=== PATIENT | male | born 1945 | race Hispanic/Latino ===

== ENCOUNTER 2021-03-08 12:14 | Inpatient (IN) | payer SELFPAY ==
[~2021-03-08] VITALS: Ht 170.2 cm; Wt 86.2 kg
[2021-03-08] MEDS ORDERED: SODIUM CHLORIDE 0.9% 1000ML 1,000 ML ONE (12:44)
[2021-03-08] MEDS ORDERED: VANCOMYCIN 750MG/NS 150ML IVPB 150 ML IV SCH (12:45)
[2021-03-08] MEDS ORDERED: SODIUM CHLORIDE 0.9% 1000ML 1,000 ML IV SCH (12:45)
[2021-03-08] MEDS: CEFEPIME HCL 1GM 1 GM in SODIUM CHLORIDE 0.9% 50ML 50 ML IV SCH (12:45)
[2021-03-08] MEDS ORDERED: CEFEPIME HCL 1 GM VIAL IV SCH (12:45)
[2021-03-08 12:47] LABS: BASOPHILS % 0.2 % (0.0-1.0); EOSINOPHILS % 0.2 % (0.0-6.0); HEMOGLOBIN 13.9 g/dL (14.0-18.0); LYMPHOCYTES # (AUTO) 1.7 (1.0-3.2); LYMPHOCYTES % 9.9 % (18.0-39.1); MEAN CORPUSCULAR HEMOGLOBIN 28.8 pg (28-32); MEAN CORPUSCULAR HGB CONC 33.1 g/dL (31-35); MONOCYTES # (AUTO) 1.6 (0.2-0.8); MONOCYTES % 9.5 % (4.4-11.3); NEUTROPHILS # (AUTO) 13.3 (2.1-6.9); NEUTROPHILS % 78.6 % (38.7-80.0); PLATELET COUNT 103 x10e3/uL (140-360); RED BLOOD COUNT 4.83 x10e6/uL (4.3-5.7)
[2021-03-08 13:02] LABS: ALBUMIN 2.6 g/dL (3.5-5.0); ALBUMIN/GLOBULIN RATIO 0.5 (0.8-2.0); ANION GAP 20.1 mmol/L (8-16); CALCIUM 8.7 mg/dL (8.4-10.2); CREATININE, SERUM 2.53 mg/dL (0.72-1.25); POTASSIUM 5.1 mmol/L (3.5-5.1)
[2021-03-08] MEDS ORDERED: ONDANSETRON HCL INJ 2MG/ML 2ML 2 MG/ML VIAL IV PRN (13:30)
[2021-03-08] MEDS ORDERED: MORPHINE SULFATE INJ 2 MG/ML SYR IV PRN (13:30)
[2021-03-08 14:15] VITALS: BP 126/65
[2021-03-08] MEDS ORDERED: DOCUSATE SODIUM 100 MG CAP PO PRN (14:30)
[2021-03-08] MEDS ORDERED: ZOLPIDEM TARTRATE 5 MG TAB PO PRN (14:30)
[2021-03-08] MEDS ORDERED: ACETAMINOPHEN 325 MG TAB PO PRN (14:30)
[2021-03-08] MEDS: VANCOMYCIN 750MG/NS 150ML IVPB 150 ML IV SCH (15:17)
[2021-03-08] MEDS: SODIUM CHLORIDE 0.9% 1000ML 1,000 ML IV SCH (15:17)
[2021-03-08 15:43] VITALS: BP 126/65
[2021-03-08 16:00] VITALS: BP 126/65
[2021-03-08] MEDS ORDERED: METFORMIN HCL500 MG PO (17:06)
[2021-03-08] MEDS ORDERED: ATACAND16 MG PO (17:07)
[2021-03-08] MEDS ORDERED: TRAMADOL HCL 50 MG TAB PO PRN (19:30)
[2021-03-08 20:00] VITALS: BP 119/57
[2021-03-08] MEDS ORDERED: DEXTROSE 50% SYRINGE 50 ML IV PRN (20:45)
[2021-03-08 21:00] VITALS: BP 119/57
[2021-03-08 21:02] LABS: INR 1.22; PROTHROMBIN TIME 16.1 seconds (11.9-14.5)
[2021-03-08 21:03] LABS: PARTIAL THROMBOPLASTIN TIME 42.7 seconds (23.8-35.5)
[2021-03-08] MEDS: GABAPENTIN 300 MG CAP PO SCH (21:30)
[2021-03-08] MEDS: INSULIN REGULAR, HUMAN 100 UNIT/1 ML 3ML VIAL SQ SCH (21:32)
[2021-03-08] MEDS: MORPHINE SULFATE INJ 4 MG/ML INJ 1ML IV PRN (22:06)
[2021-03-08] MEDS: HEPARIN SOD (PORCINE) 5,000 UNIT/ML VIAL SC SCH (22:10)
[2021-03-09] VITALS (9 sets, daily range): BP systolic 113–146; BP diastolic 60–82
[2021-03-09] MEDS: CEFEPIME HCL 1GM 1 GM in SODIUM CHLORIDE 0.9% 50ML 50 ML IV SCH ×2 (00:58→11:50)
[2021-03-09] MEDS: VANCOMYCIN 750MG/NS 150ML IVPB 150 ML IV SCH ×2 (02:21→15:15)
[2021-03-09 04:39] LABS: BASOPHILS # (AUTO) 0.1 (0.0-0.1); BASOPHILS % 0.3 % (0.0-1.0); EOSINOPHILS # (AUTO) 0.1 (0.0-0.4); EOSINOPHILS % 0.4 % (0.0-6.0); HEMATOCRIT 36.3 % (38.2-49.6); HEMOGLOBIN 11.8 g/dL (14.0-18.0); LYMPHOCYTES # (AUTO) 2.2 (1.0-3.2); LYMPHOCYTES % 13.5 % (18.0-39.1); MEAN CORPUSCULAR HEMOGLOBIN 28.8 pg (28-32); MEAN CORPUSCULAR HGB CONC 32.5 g/dL (31-35); MEAN CORPUSCULAR VOLUME 88.5 fL (81-99); MONOCYTES # (AUTO) 1.7 (0.2-0.8); MONOCYTES % 10.8 % (4.4-11.3); NEUTROPHILS # (AUTO) 11.6 (2.1-6.9); NEUTROPHILS % 73.1 % (38.7-80.0); PLATELET COUNT 114 x10e3/uL (140-360); RED CELL DISTRIBUTION WIDTH 13.1 % (11.7-14.4)
[2021-03-09 04:59] LABS: ANION GAP 14.8 mmol/L (8-16); CALCIUM 7.9 mg/dL (8.4-10.2); CREATININE, SERUM 2.23 mg/dL (0.72-1.25); POTASSIUM 4.8 mmol/L (3.5-5.1)
[2021-03-09] MEDS: HEPARIN SOD (PORCINE) 5,000 UNIT/ML VIAL SC SCH ×3 (06:03→21:49)
[2021-03-09] MEDS: INSULIN REGULAR, HUMAN 100 UNIT/1 ML 3ML VIAL SQ SCH ×4 (07:30→21:37)
[2021-03-09] MEDS: MUPIROCIN 2% OINT 22 GM TUBE TOP SCH ×2 (09:21→17:29)
[2021-03-09] MEDS: GABAPENTIN 300 MG CAP PO SCH (09:21)
[2021-03-09] MEDS: SODIUM CHLORIDE 0.9% 1000ML 1,000 ML IV SCH (10:53)
[2021-03-09] MEDS: MORPHINE SULFATE INJ 4 MG/ML INJ 1ML IV PRN (10:54)
[2021-03-09] MEDS: GABAPENTIN 100 MG CAP PO SCH ×2 (15:16→21:11)
[2021-03-09] MEDS: OXYMETAZOLINE HCL 0.05% NAS 1 SPRAY BTL SCH (21:00)
[2021-03-10] MEDS: CEFEPIME HCL 1GM 1 GM in SODIUM CHLORIDE 0.9% 50ML 50 ML IV SCH ×2 (00:35→11:05)
[2021-03-10 01:56] VITALS: BP 118/57
[2021-03-10] MEDS: VANCOMYCIN 750MG/NS 150ML IVPB 150 ML IV SCH (02:33)
[2021-03-10] MEDS: SODIUM CHLORIDE 0.9% 1000ML 1,000 ML IV SCH (02:33)
[2021-03-10 05:51] VITALS: BP 138/74
[2021-03-10] MEDS: HEPARIN SOD (PORCINE) 5,000 UNIT/ML VIAL SC SCH (06:03)
[2021-03-10 07:35] VITALS: BP 128/63
[2021-03-10 07:37] VITALS: BP 128/63
[2021-03-10 07:50] LABS: BASOPHILS # (AUTO) 0.1 (0.0-0.1); BASOPHILS % 0.3 % (0.0-1.0); EOSINOPHILS # (AUTO) 0.1 (0.0-0.4); EOSINOPHILS % 0.9 % (0.0-6.0); HEMATOCRIT 37.8 % (38.2-49.6); HEMOGLOBIN 12.3 g/dL (14.0-18.0); LYMPHOCYTES # (AUTO) 1.8 (1.0-3.2); LYMPHOCYTES % 11.6 % (18.0-39.1); MEAN CORPUSCULAR HEMOGLOBIN 28.7 pg (28-32); MEAN CORPUSCULAR HGB CONC 32.5 g/dL (31-35); MEAN CORPUSCULAR VOLUME 88.1 fL (81-99); MONOCYTES # (AUTO) 1.4 (0.2-0.8); MONOCYTES % 8.9 % (4.4-11.3); NEUTROPHILS # (AUTO) 11.6 (2.1-6.9); NEUTROPHILS % 76.1 % (38.7-80.0); PLATELET COUNT 107 x10e3/uL (140-360); RED BLOOD COUNT 4.29 x10e6/uL (4.3-5.7); RED CELL DISTRIBUTION WIDTH 13.2 % (11.7-14.4)
[2021-03-10] MEDS: GABAPENTIN 100 MG CAP PO SCH (08:25)
[2021-03-10] MEDS: OXYMETAZOLINE HCL 0.05% NAS 1 SPRAY BTL SCH (08:27)
[2021-03-10] MEDS: INSULIN REGULAR, HUMAN 100 UNIT/1 ML 3ML VIAL SQ SCH (08:29)
[2021-03-10 08:42] LABS: ANION GAP 11.6 mmol/L (8-16); CALCIUM 7.8 mg/dL (8.4-10.2); CREATININE, SERUM 1.9 mg/dL (0.72-1.25); MAGNESIUM 2.4 MG/DL (1.3-2.1); PHOSPHORUS 3.3 MG/DL (2.3-4.7); POTASSIUM 4.6 mmol/L (3.5-5.1)
[2021-03-10] MEDS ORDERED: ACETAMINOPHEN325 M1 PO (10:44)
[2021-03-10] MEDS ORDERED: CEFUROXIME250 MG PO (10:44)
[2021-03-10] MEDS ORDERED: GABAPENTIN100 MG PO (10:44)
[2021-03-10] MEDS ORDERED: MUPIROCIN22 GM TOP (10:44)
[2021-03-10] MEDS ORDERED: CLINDAMYCIN HC150 MG PO (10:44)
[2021-03-10] MEDS: MUPIROCIN 2% OINT 22 GM TUBE TOP SCH (10:54)
== END 2021-03-10 15:10 | disposition home or self-care (01) | DRG 872 ==
LOC: ER 12:45 → ERHOLD 13:20 → MED/SURG2 14:32
PROVIDERS: ADMIT Internal Medicine; ATTEND Internal Medicine
DX: A41.9 Sepsis, unspecified organism (principal); L97.528 Non-pressure chronic ulcer of other part of left foot with other specified severity; E11.52 Type 2 diabetes mellitus with diabetic peripheral angiopathy with gangrene; I96 Gangrene, not elsewhere classified; N17.9 Acute kidney failure, unspecified; E87.2 Acidosis; E11.621 Type 2 diabetes mellitus with foot ulcer; Z79.899 Other long term (current) drug therapy; Z20.822 Contact with and (suspected) exposure to COVID-19
CPT/HCPCS: 36415; 80048; 80053; 80061; 80202; 82948; 83036; 83605; 83735; 84100; 85025; 85610; 85730; 87040; 93925; 96361; 99284; J0692; J1644; J1817; J2270; J2405; J7030; U0002